=== PATIENT | male | born 1955 | race Caucasian/White ===

== ENCOUNTER 2023-11-20 16:05 | Emergency (ER) | payer OTHER, SELFPAY ==
[2023-11-20 16:08] VITALS: BP 148/68
[2023-11-20 16:39] LABS: % Basophils 0.5 % (0-2); % Eosinophils 0.8 % (0-6); % Immature Granulocytes 0.3 % (0-0.5); % Lymphocytes 27.4 % (20.5-51.1); % Monocytes 6.7 % (1.7-9.3); % Neutrophils 64.3 % (42.2-75.2); Absolute Eosinophils 0.1 10^3/uL (0-0.7); Absolute Lymphocytes 1.8 10^3/uL (1.2-3.4); Absolute Monocytes 0.4 10^3/uL (0.1-0.6); Absolute Neutrophils 4.3 10^3/uL (1.4-6.5); Hematocrit 44.4 % (39.0-52.0); Mean Corp Hgb Conc. 33.8 g/dL (33.0-37.0); Mean Corpuscular Hgb 29.9 pg (27.0-31.0); Mean Corpuscular Volume 88.4 fL (80.0-94.0); Mean Platelet Volume 9.9 fL (7.4-10.4); Nucleated Red Blood Cells % 0 % (-); Platelet Count 191 10^3/uL (130-400); Red Blood Cell Count 5.02 10^6/uL (4.70-6.10); White Blood Cell Count 6.6 10^3/uL (4.8-10.8)
[2023-11-20 16:49] LABS: ALT (SGPT) 16 U/L (0-50); AST (SGOT) 16 U/L (17-59); Alkaline Phosphatase 98 U/L (38-126); Blood Urea Nitrogen 25 mg/dl (9-20); Calcium 9.6 mg/dl (8.4-10.2); Carbon Dioxide 27 mmol/L (22-30); Chloride 102 mmol/L (98-107); Glucose 259 mg/dl (70-99); Lipase 782 U/L (23-300); Potassium 4.6 mmol/L (3.5-5.1); Sodium 132 mmol/L (135-145); Total Bilirubin 1.4 mg/dl (0.2-1.3); Total Protein 6.7 g/dl (6.3-8.2); eGFR > 60.00
[2023-11-20 17:00] LABS: Troponin I < 0.012 ng/ml
--- NOTE | 2023-11-20 17:17 | ED.GENMED ---
History of Present Illness
General
Chief Complaint: Abdominal Pain
Source: patient and spouse
Exam Limitations: none
Time Seen by Provider: 11/20/23 16:44
Nursing documentation reviewed up to this point in time: agreed with
Travel History
Have you had any contact with someone who has COVID-19?: No
Do you have any symptoms of coronavirus? Fever > 100 degrees, chills, cough, shortness of breath, sore throat, loss of taste or smell, muscle aches, or headache?: No
History of Present Illness
History of Present Illness:
68-year-old male with past medical history of A-fib currently on Eliquis and metoprolol, hypertension presenting to the emergency department today with concerns of epigastric abdominal pain over the past week and also has been constipated. Denies
any nausea or vomiting. Denies any chest pain shortness of breath.
Past History
Past History
ED Past Medical History: HTN, NIDDM and Other (Pancreatitis)
ED Past Surgical History: Orthopedic
Social History
Tobacco: Smoker
Alcohol: Daily (Wine 1-2 glasses)
Drug: None
Personal:
Living: with family
Employment: Employed
Review of Systems
Review of Systems
Allergies reviewed?: Yes
All Other Systems: ROS reviewed and negative except as documented in HPI and ROS
Phy Exam
Physical Exam
Physical Exam:
GENERAL: Alert , in no apparent distress
EYE: pupils equal and reactive
NECK: Supple, no significant adenopathy.
ENT: o/p clr, mmm.
CARDIAC: Regular rate and rhythm .
LUNGS: Clear breath sounds bilaterally, no acute respiratory distress, no wheezes/rales/rhonchi
ABDOMEN: Mild pain to the epigastric region otherwise soft benign abdomen no specific right upper quadrant pain
NEUROLOGICAL: Alert and oriented, no focal neuro deficits
SKIN: Warm and dry, skin intact.
MUSCULOSKELETAL: No edema, well perfused.
PSYCH: Normal and appropriate interaction.
Course
Orders/Labs/Results
Orders:
Orders
11/20/23 16:09
Electrocardiogram (*1) Urgent
Reason for Study: Abdominal Pain
11/20/23 16:10
EKG- Treatment ONCE
11/20/23 16:21
Complete Blood Count/With Diff Urgent
Comprehensive Metabolic Panel Urgent
Lipase Urgent
Magnesium Urgent
Troponin I Urgent
11/20/23 17:18
CT Abd/Pel (IV only)-DH only Urgent
Comment:
Reason For Exam: upper abd pain, no bms for 3 days
0.9% Sodium Chloride 1000 ml [Nss] 1,000 ml IV BOLUS
11/20/23 17:21
Add On- LAB Urgent
Tests Added?: magnesium level
Abnormal Lab Results
11/20/23
16:21
Sodium 132 L mmol/L
(135-145)
BUN 25 H mg/dl
(9-20)
Glucose 259 H mg/dl
(70-99)
Total Bilirubin 1.4 H mg/dl
(0.2-1.3)
AST 16 L U/L
(17-59)
Lipase 782 H U/L
(23-300)
11/20/23 16:21
11/20/23 16:21
Vital Signs
Initial and Last Documented VS:
Initial Vital Signs
Temp Pulse Resp BP Pulse Ox
97.9 F 53 20 148/68 100
11/20/23 16:08 11/20/23 16:08 11/20/23 16:08 11/20/23 16:08 11/20/23 16:08
Last Documented Vital Signs
Temp Pulse Resp BP Pulse Ox
97.9 F 53 20 148/68 100
11/20/23 16:08 11/20/23 16:08 11/20/23 16:08 11/20/23 16:08 11/20/23 16:08
MDM/Problems Addressed
MDM/Problems Addressed:
68-year-old male presenting to the emergency department today with concerns of epigastric over the past week also has had some constipation denies nausea or vomiting. Vital signs showing slightly elevated blood pressure otherwise vital signs are
normal. Labs showing an elevated lipase level of 782 which is below the 3 times limit but elevated troponin negative EKG normal CT scan performed without emergent findings incidental findings were already aware about the patient. Glucose is
elevated but not consistent with DKA. Potential treatment plans for the patient were discussed. If he had significant symptoms and felt a comfortable going home it was offered for him to be admitted with fluids. He specifically said that he has
had pancreatitis in the past and was able to progress his diet at home with no issues. He was recommended to return for any worsening symptoms and was given information for follow-up
*Critical Care Note
Total Time (30-74mins, 75-104mins- exclusive of procedures): Not Applicable
ED Attending Note
-
Portions of this chart may have been created with voice recognition software.� Occasional wrong word or��sound alike� substitutions may have occurred due to the inherent limitations of voice recognition software.
Discharge Plan
Departure
Patient Disposition: Home (Routine Discharge)
Date of Disposition: 11/20/23
Time of Disposition: 20:56
Patient with high blood pressure during this ER visit?: No
Condition: Good
Covid-19: Not Applicable
Discharge Problem:
Pancreatitis
Instructions: Pancreatitis (DC)
Prescriptions:
New
magnesium citrate Solution
300 ml PO ONCE PRN (Reason: constipation) Qty: 296 0RF
No Action
metformin 500 MG tablet
750 mg PO BID
glipizide 5 MG tablet
5 mg PO BID
lisinopril 20 MG tablet
20 mg PO DAILY
tamsulosin 0.4 MG capsule
0.4 mg PO DAILY Qty: 7 0RF
rosuvastatin [Crestor] 20 mg tablet
20 mg PO DAILY Qty: 30 11RF
metoprolol succinate [Toprol XL] 25 mg tablet extended release 24 hr
25 mg PO DAILY Qty: 30 11RF
Eliquis 5 mg tablet
5 mg PO BID Qty: 60 11RF
Referrals:
Scout Garcia MD [Family Provider] -
Activity Restrictions/Additional Instructions:
You came the emergency department today with concerns of epigastric abdominal pain. This could be a mild pancreatitis. Please slowly progress diet over the next few days with bland foods and water. Return to the emergency department immediately
for any worsening, new or concerning symptoms.
Interventions
Interventions:
*Risk Screen - Suicide Last Done: 11/20/23 17:54
*General Assessment Last Done: 11/20/23 17:54
*Neglect/Abuse Screening Last Done: 11/20/23 17:54
ED- Fall Risk Assessment Last Done: 11/20/23 17:53
*ED COVID-19 Vaccine History Last Done: 11/20/23 16:08
SI-Wpggbu-Ptecklvyve Assessment Last Done: 11/20/23 17:55
Discharge Date and Time
Print Language: MONTSERRATIAN
[2023-11-20] MEDS: NSS 1000 IV (17:51)
[2023-11-20 17:52] VITALS: BMI 29.8
[2023-11-20 18:01] LABS: Magnesium 1.6 mg/dl (1.6-2.3)
[2023-11-20 20:54] VITALS: BP 120/74
== END 2023-11-20 21:07 | disposition home or self-care (01) ==
LOC: EMR 16:05
PROVIDERS: EMERGENCY PHYSICIAN Student in an Organized Health Care Education/Training Program; FAMILY PHYSICIAN Family Medicine
DX: K85.90 Acute pancreatitis without necrosis or infection, unspecified (principal); I10 Essential (primary) hypertension; E11.65 Type 2 diabetes mellitus with hyperglycemia; I48.91 Unspecified atrial fibrillation; F17.200 Nicotine dependence, unspecified, uncomplicated; Z79.01 Long term (current) use of anticoagulants; Z79.84 Long term (current) use of oral hypoglycemic drugs
CPT/HCPCS: 99285; 96360; 74177; 80053; 83690; 83735; 84484; 85025; 93005; Q9967

== ENCOUNTER 2024-11-02 17:55 | Emergency (ER) | payer SELFPAY ==
[2024-11-02 18:01] VITALS: BP 148/70
[2024-11-02 18:23] LABS: % Basophils 0.6 % (0-2); % Immature Granulocytes 0.4 % (0-0.5); % Monocytes 5.8 % (1.7-9.3); % Neutrophils 73.2 % (42.2-75.2); Absolute Eosinophils 0.1 10^3/uL (0-0.7); Absolute Lymphocytes 1.3 10^3/uL (1.2-3.4); Absolute Monocytes 0.4 10^3/uL (0.1-0.6); Absolute Neutrophils 5.1 10^3/uL (1.4-6.5); Hematocrit 48.1 % (39.0-52.0); Hemoglobin 16.2 g/dL (13.0-18.0); Mean Corp Hgb Conc. 33.7 g/dL (33.0-37.0); Mean Corpuscular Hgb 30.2 pg (27.0-31.0); Mean Corpuscular Volume 89.6 fL (80.0-94.0); Mean Platelet Volume 9.3 fL (7.4-10.4); Nucleated Red Blood Cells % 0 % (-); Platelet Count 210 10^3/uL (130-400); Red Blood Cell Count 5.37 10^6/uL (4.70-6.10); Red Cell Dist. Width 14.9 % (11.5-14.5); White Blood Cell Count 6.9 10^3/uL (4.8-10.8)
[2024-11-02 18:41] LABS: ALT (SGPT) 16 U/L (0-50); AST (SGOT) 18 U/L (17-59); Albumin 4.5 g/dl (3.5-5.0); Alkaline Phosphatase 86 U/L (38-126); Blood Urea Nitrogen 24 mg/dl (9-20); Calcium 9.7 mg/dl (8.4-10.2); Carbon Dioxide 30 mmol/L (22-30); Chloride 102 mmol/L (98-107); Glucose 124 mg/dl (70-99); Potassium 4.1 mmol/L (3.5-5.1); Sodium 142 mmol/L (135-145); Total Bilirubin 1.3 mg/dl (0.2-1.3); Total Protein 7.1 g/dl (6.3-8.2); eGFR > 60.00
[2024-11-02 18:46] LABS: Troponin I 0.016 ng/ml
[2024-11-02 19:27] VITALS: BP 145/61
[2024-11-02 20:00] VITALS: BP 134/58
[2024-11-02 21:00] VITALS: BP 138/58
[2024-11-02 21:46] LABS: Troponin I < 0.012 ng/ml
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
== END 2024-11-02 22:02 | disposition home or self-care (01) ==
LOC: EMR 17:55
PROVIDERS: Nurse Practitioner; EMERGENCY PHYSICIAN Student in an Organized Health Care Education/Training Program; FAMILY PHYSICIAN Family Medicine
DX: R42 Dizziness and giddiness (principal); E11.9 Type 2 diabetes mellitus without complications; I10 Essential (primary) hypertension; F17.200 Nicotine dependence, unspecified, uncomplicated; Z01.810 Encounter for preprocedural cardiovascular examination
CPT/HCPCS: 99284; 70450; 80053; 84484; 85025; 93005

== ENCOUNTER → 2025-05-21 10:52 | Outpatient (REF) | payer OTHER, SELFPAY | LOC: DHSLP 10:52 | PROVIDERS: ATTENDING PHYSICIAN Internal Medicine Cardiovascular Disease; FAMILY PHYSICIAN Family Medicine | DX: G47.33 Obstructive sleep apnea (adult) (pediatric) (principal) | CPT/HCPCS: 95800 ==